=== PATIENT | female | born 1955 | race Caucasian/White ===

== ENCOUNTER → 2017-11-10 11:30 | Outpatient (CLI) | payer OTHER, SELFPAY ==
[2017-11-10 14:22] LABS: Erythrocyte Sedimentation Rate 21 mm/hr (0-30)
[2017-11-10 14:25] LABS: Absolute Lymphocyte Count 1.73 X10^3/ul (0.83-4.51); Absolute Neutrophil Count 5.3 X10^3/uL (2.0-7.7); Basophil# 0.01 X10^3/uL; Basophil% 0.1 % (0-1); Eosinophil# 0.12 X10^3/uL; Eosinophils% 1.6 % (0-5); Hematocrit 39.5 % (37-47); Hemoglobin 12.3 g/dl (12.0-15.0); Lymphocyte # 1.73 X10^3/ul (4.0); Mean Corp Hgb Conc 31.1 g/gl (32-36); Mean Corpuscular Hgb 29.8 pg (27.0-32.0); Mean Corpuscular Volume 95.6 fL (81-99); Mean Platelet Vol. 11.5 fl (6.2-12.0); Monocyte# 0.42 X10^3/uL; Monocyte% 5.6 % (0-10); Neutrophil # 5.25 X10^3/uL (2.7-7.7); Neutrophil % 69.7 % (47-70); Platelet Count 239 K/mm3 (150-450); RBC Distribution Width CV 14.5 % (11.6-14.6); RBC Distribution Width SD 50.1 fl (35.1-43.9); Red Blood Count 4.13 M/mm3 (4.2-5.4); White Blood Count 7.5 K/mm3 (4.4-11.0)
[2017-11-10 14:27] LABS: POSITIVE COUNT NO; POSITIVE DIFFERENTIAL NO; POSITIVE MORPHOLOGY NO
[2017-11-10 14:28] LABS: ALB/GLOB Ratio 0.9 RATIO (0.9-2.4); AST(SGOT) 22 U/L (15-37); Alanine Aminotransfer ALT/SGPT 27 U/L (13-56); Albumin, Serum 3.6 g/dL (3.2-5.0); Alkaline Phosphatase 57 U/L (45-117); Anion Gap 8 (5-15); BUN 14 mg/dL (7-18); BUN/Creat Ratio 16.2 RATIO (10-20); Chloride 105 mmol/L (98-107); Creatinine, Serum 0.86 mg/dL (0.55-1.02); EST Glomerular Filtration Rate 71 mL/min (>60); Est Glom Filt Rate - Afr Amer 86 mL/min (>60); Globulin 3.9 g/dL (2.2-4.2); Glucose 113 mg/dL (74-106); Potassium 4.1 mmol/L (3.5-5.1); Protein, Total 7.5 g/dL (6.4-8.2); Sodium Level 140 mmol/L (136-145)
== END ==
PROVIDERS: Family Provider Family Medicine; PCP Family Medicine; Visit Provider Internal Medicine Rheumatology
DX: M06.4 Inflammatory polyarthropathy (principal); Z79.899 Other long term (current) drug therapy; M25.511 Pain in right shoulder; K52.89 Other specified noninfective gastroenteritis and colitis; M21.40 Flat foot [pes planus] (acquired), unspecified foot; F32.89 Other specified depressive episodes; E03.9 Hypothyroidism, unspecified; F41.9 Anxiety disorder, unspecified; J30.9 Allergic rhinitis, unspecified
CPT/HCPCS: 36415; 80053; 85025; 85652; 86140

== ENCOUNTER → 2018-05-20 11:53 | Outpatient (CLI) | payer OTHER, SELFPAY ==
[2018-05-20 14:20] LABS: Absolute Lymphocyte Count 1.83 X10^3/ul (0.83-4.51); Absolute Neutrophil Count 6.5 X10^3/uL (2.0-7.7); Basophil# 0.03 X10^3/uL; Basophil% 0.3 % (0-1); Eosinophil# 0.11 X10^3/uL; Eosinophils% 1.2 % (0-5); Hematocrit 41.1 % (37-47); Hemoglobin 13.1 g/dl (12.0-15.0); Lymphocyte # 1.83 X10^3/ul (4.0); Lymphocyte % 20.1 % (19-41); Mean Corp Hgb Conc 31.9 g/gl (32-36); Mean Corpuscular Volume 94.1 fL (81-99); Mean Platelet Vol. 11.5 fl (6.2-12.0); Monocyte# 0.64 X10^3/uL; Neutrophil # 6.48 X10^3/uL (2.7-7.7); Neutrophil % 71.3 % (47-70); Platelet Count 230 K/mm3 (150-450); RBC Distribution Width SD 48.4 fl (35.1-43.9); Red Blood Count 4.37 M/mm3 (4.2-5.4); White Blood Count 9.1 K/mm3 (4.4-11.0)
[2018-05-20 14:28] LABS: POSITIVE COUNT NO; POSITIVE DIFFERENTIAL NO; POSITIVE MORPHOLOGY NO
[2018-05-20 14:31] LABS: ALB/GLOB Ratio 0.9 RATIO (0.9-2.4); AST(SGOT) 14 U/L (15-37); Alanine Aminotransfer ALT/SGPT 21 U/L (13-56); Albumin, Serum 3.7 g/dL (3.2-5.0); Alkaline Phosphatase 61 U/L (45-117); BUN 14 mg/dL (7-18); BUN/Creat Ratio 18.1 RATIO (10-20); Calcium,Total 8.9 mg/dL (8.5-10.1); Chloride 104 mmol/L (98-107); Creatinine, Serum 0.77 mg/dL (0.55-1.02); EST Glomerular Filtration Rate 80 mL/min (>60); Est Glom Filt Rate - Afr Amer 97 mL/min (>60); Glucose 110 mg/dL (74-106); Potassium 3.9 mmol/L (3.5-5.1); Protein, Total 7.7 g/dL (6.4-8.2); Sodium Level 139 mmol/L (136-145)
[2018-05-20 14:32] LABS: Anion Gap 8 (5-15)
== END ==
PROVIDERS: Family Provider Family Medicine; PCP Family Medicine; Referring Provider Internal Medicine Rheumatology; Visit Provider Internal Medicine Rheumatology
DX: M06.4 Inflammatory polyarthropathy (principal); Z79.899 Other long term (current) drug therapy; K52.89 Other specified noninfective gastroenteritis and colitis; M21.40 Flat foot [pes planus] (acquired), unspecified foot; F32.89 Other specified depressive episodes; E03.9 Hypothyroidism, unspecified; F41.9 Anxiety disorder, unspecified; J30.9 Allergic rhinitis, unspecified
CPT/HCPCS: 36415; 80053; 85025

== ENCOUNTER → 2018-08-10 12:00 | Outpatient (CLI) | payer OTHER, SELFPAY ==
[2018-08-10 13:13] LABS: Absolute Lymphocyte Count 1.82 X10^3/ul (0.83-4.51); Absolute Neutrophil Count 5.8 X10^3/uL (2.0-7.7); Basophil# 0.03 X10^3/uL; Basophil% 0.3 % (0-1); Eosinophil# 0.08 X10^3/uL; Eosinophils% 0.9 % (0-5); Lymphocyte # 1.82 X10^3/ul (4.0); Lymphocyte % 21.2 % (19-41); Mean Corp Hgb Conc 31.8 g/gl (32-36); Mean Corpuscular Hgb 29.6 pg (27.0-32.0); Mean Platelet Vol. 10.7 fl (6.2-12.0); Monocyte% 9.3 % (0-10); Neutrophil # 5.84 X10^3/uL (2.7-7.7); Neutrophil % 68.1 % (47-70); POSITIVE COUNT NO; POSITIVE DIFFERENTIAL NO; POSITIVE MORPHOLOGY NO; Platelet Count 287 K/mm3 (150-450); RBC Distribution Width CV 14.1 % (11.6-14.6); RBC Distribution Width SD 46.3 fl (35.1-43.9); Red Blood Count 4.73 M/mm3 (4.2-5.4); White Blood Count 8.6 K/mm3 (4.4-11.0)
[2018-08-10 13:31] LABS: AST(SGOT) 20 U/L (15-37); Alanine Aminotransfer ALT/SGPT 35 U/L (13-56); Albumin, Serum 3.9 g/dL (3.2-5.0); Alkaline Phosphatase 60 U/L (45-117); Anion Gap 7 (5-15); BUN 16 mg/dL (7-18); Calcium,Total 9.1 mg/dL (8.5-10.1); Chloride 105 mmol/L (98-107); Creatinine, Serum 0.89 mg/dL (0.55-1.02); EST Glomerular Filtration Rate 68 mL/min (>60); Est Glom Filt Rate - Afr Amer 83 mL/min (>60); Globulin 3.9 g/dL (2.2-4.2); Glucose 97 mg/dL (74-106); Potassium 4.2 mmol/L (3.5-5.1); Protein, Total 7.8 g/dL (6.4-8.2); Sodium Level 140 mmol/L (136-145)
== END ==
PROVIDERS: Family Provider Family Medicine; PCP Family Medicine; Referring Provider Internal Medicine Rheumatology; Visit Provider Internal Medicine Rheumatology
DX: M06.4 Inflammatory polyarthropathy (principal); K52.89 Other specified noninfective gastroenteritis and colitis; M21.40 Flat foot [pes planus] (acquired), unspecified foot; F32.89 Other specified depressive episodes; E03.9 Hypothyroidism, unspecified; F41.9 Anxiety disorder, unspecified; J30.9 Allergic rhinitis, unspecified; Z79.899 Other long term (current) drug therapy
CPT/HCPCS: 36415; 80053; 85025

== ENCOUNTER → 2018-11-15 | Outpatient (CLI) | payer OTHER, SELFPAY ==
[2018-11-15 15:44] LABS: Absolute Lymphocyte Count 1.16 X10^3/ul (0.83-4.51); Absolute Neutrophil Count 6.5 X10^3/uL (2.0-7.7); Basophil# 0.02 X10^3/uL; Basophil% 0.2 % (0-1); Eosinophil# 0.12 X10^3/uL; Eosinophils% 1.4 % (0-5); Hematocrit 39.6 % (37-47); Hemoglobin 12.5 g/dl (12.0-15.0); Lymphocyte # 1.16 X10^3/ul (4.0); Lymphocyte % 13.8 % (19-41); Mean Corp Hgb Conc 31.6 g/gl (32-36); Mean Corpuscular Hgb 29.3 pg (27.0-32.0); Mean Platelet Vol. 11.9 fl (6.2-12.0); Monocyte# 0.62 X10^3/uL; Monocyte% 7.4 % (0-10); Neutrophil # 6.47 X10^3/uL (2.7-7.7); Neutrophil % 76.8 % (47-70); Platelet Count 204 K/mm3 (150-450); RBC Distribution Width SD 46.1 fl (35.1-43.9); Red Blood Count 4.26 M/mm3 (4.2-5.4); White Blood Count 8.4 K/mm3 (4.4-11.0)
[2018-11-15 15:54] LABS: POSITIVE COUNT NO; POSITIVE DIFFERENTIAL NO; POSITIVE MORPHOLOGY NO
[2018-11-15 16:22] LABS: ALB/GLOB Ratio 0.9 RATIO (0.9-2.4); AST(SGOT) 16 U/L (15-37); Alanine Aminotransfer ALT/SGPT 24 U/L (13-56); Albumin, Serum 3.6 g/dL (3.2-5.0); Alkaline Phosphatase 56 U/L (45-117); Anion Gap 8 (5-15); BUN 15 mg/dL (7-18); BUN/Creat Ratio 16.4 RATIO (10-20); Chloride 106 mmol/L (98-107); Creatinine, Serum 0.92 mg/dL (0.55-1.02); EST Glomerular Filtration Rate 66 mL/min (>60); Est Glom Filt Rate - Afr Amer 80 mL/min (>60); Globulin 3.8 g/dL (2.2-4.2); Glucose 118 mg/dL (74-106); Protein, Total 7.4 g/dL (6.4-8.2); Sodium Level 142 mmol/L (136-145)
== END | disposition home or self-care (01) ==
LOC: MTLAB 14:08
PROVIDERS: Family Provider Family Medicine; PCP Family Medicine; Referring Provider Internal Medicine Rheumatology; Visit Provider Internal Medicine Rheumatology
DX: M06.4 Inflammatory polyarthropathy (principal); Z79.899 Other long term (current) drug therapy; K52.89 Other specified noninfective gastroenteritis and colitis; M21.40 Flat foot [pes planus] (acquired), unspecified foot; F32.89 Other specified depressive episodes; E03.9 Hypothyroidism, unspecified; F41.9 Anxiety disorder, unspecified; J30.9 Allergic rhinitis, unspecified
CPT/HCPCS: 36415; 80053; 85025

== ENCOUNTER → 2019-02-10 12:12 | Outpatient (CLI) | payer OTHER, SELFPAY ==
[2019-02-10 14:27] LABS: Absolute Lymphocyte Count 1.58 X10^3/uL (0.83-4.51); Absolute Neutrophil Count 9.3 X10^3/uL (2.0-7.7); Basophil# 0.05 X10^3/uL; Basophil% 0.4 % (0-1); Eosinophil# 0.15 X10^3/uL; Eosinophils% 1.3 % (0-5); Hematocrit 41.3 % (37-47); Hemoglobin 12.7 g/dL (12.0-15.0); Lymphocyte # 1.58 X10^3/ul (4.0); Lymphocyte % 13.5 % (19-41); Mean Corp Hgb Conc 30.8 g/dL (32-36); Mean Corpuscular Hgb 29.7 pg (27.0-32.0); Mean Corpuscular Volume 96.5 fL (81-99); Mean Platelet Vol. 11.7 fl (6.2-12.0); Monocyte# 0.58 X10^3/uL; Monocyte% 4.9 % (0-10); NRBC Flagged by Analyzer 0 % (0-5); Neutrophil # 9.33 X10^3/uL (2.7-7.7); Neutrophil % 79.6 % (47-70); Platelet Count 235 K/mm3 (150-450); RBC Distribution Width CV 14.5 % (11.6-14.6); RBC Distribution Width SD 50.8 fl (35.1-43.9); Red Blood Count 4.28 M/mm3 (4.2-5.4); White Blood Count 11.7 K/mm3 (4.4-11.0)
[2019-02-10 14:40] LABS: ALB/GLOB Ratio 0.9 RATIO (0.9-2.4); AST(SGOT) 18 U/L (15-37); Alanine Aminotransfer ALT/SGPT 27 U/L (13-56); Albumin, Serum 3.7 g/dL (3.2-5.0); Alkaline Phosphatase 60 U/L (45-117); Anion Gap 4 (5-15); BUN 16 mg/dL (7-18); Calcium,Total 9.3 mg/dL (8.5-10.1); Chloride 106 mmol/L (98-107); Creatinine, Serum 0.84 mg/dL (0.55-1.02); EST Glomerular Filtration Rate 73 mL/min (>60); Est Glom Filt Rate - Afr Amer 88 mL/min (>60); Globulin 3.9 g/dL (2.2-4.2); Glucose 95 mg/dL (74-106); Potassium 4.1 mmol/L (3.5-5.1); Protein, Total 7.6 g/dL (6.4-8.2); Sodium Level 139 mmol/L (136-145)
== END ==
PROVIDERS: Family Provider Family Medicine; PCP Family Medicine; Referring Provider Internal Medicine Rheumatology; Visit Provider Internal Medicine Rheumatology
DX: M06.4 Inflammatory polyarthropathy (principal); Z79.899 Other long term (current) drug therapy; K52.89 Other specified noninfective gastroenteritis and colitis; M21.40 Flat foot [pes planus] (acquired), unspecified foot; F32.89 Other specified depressive episodes; E03.9 Hypothyroidism, unspecified; F41.9 Anxiety disorder, unspecified; J30.9 Allergic rhinitis, unspecified
CPT/HCPCS: 36415; 80053; 85025

== ENCOUNTER → 2019-05-31 10:57 | Outpatient (CLI) | payer OTHER, SELFPAY ==
[2019-05-31 12:07] LABS: Absolute Lymphocyte Count 1.63 X10^3/uL (0.83-4.51); Absolute Neutrophil Count 6.7 X10^3/uL (2.0-7.7); Basophil# 0.05 X10^3/uL; Basophil% 0.5 % (0-1); Eosinophil# 0.14 X10^3/uL; Eosinophils% 1.5 % (0-5); Hematocrit 42.3 % (37-47); Lymphocyte # 1.63 X10^3/ul (4.0); Lymphocyte % 17.6 % (19-41); Mean Corp Hgb Conc 30.7 g/dL (32-36); Mean Corpuscular Volume 94.4 fL (81-99); Mean Platelet Vol. 11.7 fl (6.2-12.0); Monocyte# 0.76 X10^3/uL; Monocyte% 8.2 % (0-10); NRBC Flagged by Analyzer 0 % (0-5); Neutrophil # 6.65 X10^3/uL (2.7-7.7); Neutrophil % 71.8 % (47-70); Platelet Count 219 K/mm3 (150-450); RBC Distribution Width CV 13.7 % (11.6-14.6); RBC Distribution Width SD 47.5 fl (35.1-43.9); Red Blood Count 4.48 M/mm3 (4.2-5.4); White Blood Count 9.3 K/mm3 (4.4-11.0)
[2019-05-31 12:56] LABS: ALB/GLOB Ratio 0.9 RATIO (0.9-2.4); AST(SGOT) 20 U/L (15-37); Alanine Aminotransfer ALT/SGPT 22 U/L (13-56); Albumin, Serum 3.6 g/dL (3.2-5.0); Alkaline Phosphatase 56 U/L (45-117); Anion Gap 4 (5-15); BUN 17 mg/dL (7-18); BUN/Creat Ratio 20.8 RATIO (10-20); Calcium,Total 9.7 mg/dL (8.5-10.1); Chloride 107 mmol/L (98-107); Creatinine, Serum 0.82 mg/dL (0.55-1.02); EST Glomerular Filtration Rate 75 mL/min (>60); Est Glom Filt Rate - Afr Amer 91 mL/min (>60); Glucose 95 mg/dL (74-106); Potassium 4.8 mmol/L (3.5-5.1); Protein, Total 7.6 g/dL (6.4-8.2); Sodium Level 139 mmol/L (136-145)
== END ==
PROVIDERS: Family Provider Family Medicine; PCP Family Medicine; Referring Provider Internal Medicine Rheumatology; Visit Provider Internal Medicine Rheumatology
DX: M06.4 Inflammatory polyarthropathy (principal); Z79.899 Other long term (current) drug therapy; K52.89 Other specified noninfective gastroenteritis and colitis; M21.40 Flat foot [pes planus] (acquired), unspecified foot; F32.89 Other specified depressive episodes; E03.9 Hypothyroidism, unspecified
CPT/HCPCS: 36415; 80053; 85025

== ENCOUNTER 2021-11-19 07:06 | Observation (INO) | payer MEDICARE, SELFPAY ==
--- NOTE | 2021-11-07 17:13 | PCM.HP.BLA ---
History and Physical History and Physical [facility] Patient Name: Isidra Hummel : 1955 From:? ANDREAS BISHOP PA-C? DATE OF SURGERY:? 11/19/2021 SCHEDULED PROCEDURE:? left total hip arthroplasty HISTORY OF PRESENT ILLNESS: Preoperative history and physical exam was performed on November 07, 2021.? This is a 66-year-old female who has had ongoing pain for the past couple years.? Patient underwent weight loss with bariatrics surgery.? This was done on November 13, 2020.? She has seen by Dr. Villagomez out of [facility].? Patient initially presented to Dr. Naldo Costello with a previous BMI of 65.? She is now currently down to 44 BMI.? She has reported progressive left hip pain located in the groin and lateral hip.? Patient's pain is intermittent, aching, sharp, stabbing.? She has increased pain with stairs and walking.? She has difficulty with activities of daily living including housework, shopping as well as leisure activities such as gardening, hiking.? She has fallen and tripped/stump due to the pain in the hip.? This has not occurred since using the walker since the fall of 2020.? She does feel unsafe climbing stairs and going for extended walks.? Patient denies previous surgery to the left hip.? She has had prior total knee replacements.? She has been on chronic pain medication involving [place] which is given by her primary care physician Dr. Castellano.? She has also been seen in the past by Dr. Martin her instrument technician helper as she has been diagnosed with inflammatory polyarthropathy.? She also has medical problems including depression, fibromyalgia, thyroid disease, gastroesophageal reflux disease, morbid obesity.? The patient does wish to proceed with a left total hip arthroplasty.? We are obtaining surgical clearance from primary care physician Dr. Castellano.? Also discussing with Dr. Castellano with regards to postoperative pain management as she is currently in a pain contract.? Patient does report last year she broke her clavicle on the right side which she states can be difficult using walkers.? That is why she is using a platform walker. REVIEW OF SYSTEMS: Review Of Systems: Constitutional: Denies change in appetite, fever and weight change. Cardiovasular: Denies chest pain, heart murmur and irregular heartbeat. Respiratory: Denies cough, pneumonia, shortness of breath, tuberculosis and wheezing. Gastrointestinal: Denies constipation, diarrhea, heartburn, nausea, rectal itching, bloody stools and vomiting. Genitourinary: Reports irregular menstrual periods. Denies incontinence. Musculoskeletal: Reports leg swelling, pain, trouble walking and weakness. Skin: Reports Raynaud's, but denies history of shingles and tattoo. Neurological: Reports ambulatory dysfunction but denies dizziness, numbness/tingling and tremor. Psychiatric: Reports anxiety, but denies insomnia and stress. Hematologic/Lymphatic: Denies anemia, bleeding/bruising tendency and past transfusion. Reviewed and updated. PAST MEDICAL HISTORY: Advance Care Plan: No Advance Directives Effective Date: 01/15/2020 Past Medical History: Medical Problems: Arthritis, Depression, Fibromyalgia, Thyroid Disease, gastroesophageal reflux disease, Hypercholesterolemia, Inflammatory Arthropathy Accidents: Fell - (09/2019) LT HIP PAIN Fracture - (03/2021) RT COLLAR BONE Surgical Hx: Gallbladder - (1998) Knee Replacement LT - (2006) Knee Replacement RT - (2006) Bariatric Surgery - (11/13/2020) Anesthesia Complications: Nausea Assistive Devices: Glasses, Cane - as needed, Up Right Walker Reviewed and updated. SOCIAL HISTORY: Social History: Marital: .Occupation: Retired.Work Status: Retired.Hand Dominance: Right-handed. Personal Habits:? Cigarette Use: Never Smoked Cigarettes.Smokeless Tobacco: Never Used Smokeless Tobacco.E-Cigarette Use: Never used.Alcohol: Denies use.Drug Use: Denies Use.Enjoy Exercising: Exercises 1-3 x/month. Reviewed, no changes. VITALS: Ht: 65 Wt: 270lb Wt k.472 BMI: 44.9 BP: 128/88 Pulse: 73 Resp: 14 T: 97.9 T: 36.6C Pain Level: 7 O2SatR: 98 ALLERGIES: Sulfa Humira Compazine? MEDICATIONS: Simvastatin 20 mg 1 po qd, Duloxetine HCL 60 mg 1 po qd, Prednisone 5 mg take 1 tablet by mouth once daily for 3-5 DAYS FOR A FLARE, Megestrol Acetate 20 mg 1 po qd, Hydrocodone Bitartrate/Acetaminophen 5-325 mg, Levothyroxine Sodium 75 mcg 1 by mouth every day, Fibercon 625 mg 1 po qd, Biotin? 1 po qd, Omeprazole 20 mg 1 by mouth every day, Metoprolol Tartrate 50 mg 1 by mouth twice a day, D3 50 mcg (2000 Ut) 1po qday, Methyl B-12 1000 mcg 1po qday, Flintstones W/Iron 18 mg 1po qday, Hydroxychloroquine Sulfate 200 mg, Methotrexate 2.5 mg, Leucovorin Calcium 5 mg 7po weekly, Folic Acid 1 mg 1 by mouth every day, Calcium 600 mg, Ferosul 325 (65 Fe) MG 1 by mouth every day PRE-OP EXAM:? General appearance:NORMAL? ? ? Other: Eyes: Conjunctivae and lids: NORMAL? Pupils: ERR Ears, Nose, Mouth, and Throat: NORMAL? Other: Inspection of lips, teeth and gums: NORMAL? ?Other: Neck: Examination of neck: no masses noted. Respiratory: Assessment of respiratory effort: NORMAL? ?Other: ?Auscultation of lungs: clear to auscultation no wheezes, rhonchi or rales. Cardiovascular:? Auscultation of heart: regular rate and rhythm, no murmurs, gallops or rubs. PHYSICAL EXAMINATION: Patient presents today using a 4 wheeled walker with platform.? This is a morbidly obese 66-year-old who walks with an antalgic gait.? She has hip flexion to approximately 40, internal rotation to neutral, external rotation 30.? Sensation intact to light touch. IMAGING STUDIES: Previous x-rays of the left hip Reveal joint space narrowing, subchondral sclerosis, osteophyte formation consistent with severe stage IV erosive osteoarthritis with associated femoral head and acetabular cyst.? The femoral head cyst that show evidence of femoral head collapse. IMPRESSION: 1.? 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 Fibromyalgia 3.? Morbid obesity: Patient is undergone bariatric surgery and went from BMI 65 to 44 4.? Depression 5.? Thyroid disease 6.? Gastroesophageal reflux disease 7.? Hypercholesterolemia 8.? Inflammatory polyarthropathy PLAN: Dr. Naldo Costello did discuss and review with the patient all treatment options including surgical versus nonsurgical options.? Patient does wish to proceed with the above-stated procedure.? Potential risks, benefits, and complications of the procedure were discussed in detail including but not limited to , infection, nerve and blood vessel damage, persistent pain, numbness, tingling, paresthesias, blood clot, pulmonary embolism, and requirement for possible further surgery.? The patient expressed full understanding and has no further questions for the doctor.? Patient does agree to proceed with the above-stated procedure and has signed the surgery consent form. We discussed the current risks associated with COVID 19.? This does include the risk of exposure while in the hospital.? Patient was reassured local hospitals have low infection rates and are taking all necessary precautions to avoid exposure to patients.? In addition, we discussed strategies that can be used to help limit exposure including those that limit the patient's time in the hospital.? Also using strategies to limit the patient's need for continued inpatient services after being discharged from the hospital.? Patient was notified that we will need to comply with any screening or testing the hospital wishes to perform or that surgery may be delayed for any positive results. This dictation was created using voice recognition software. Phonetic and/or grammatical errors may exist. ___? I have re-examined the patient.? There are no clinical changes since date of exam. ___? See progress notes for changes. ___? Dictated on admission Date: ? ? ?Time: Signature:
[2021-11-19] VITALS (15 sets, daily range): BP systolic 115–160; BP diastolic 60–115; PULSE 81–91; RESP 16–18; TEMP 36.1–37.3; O2SAT 97–100; BMI 46.5
--- NOTE | 2021-11-19 | HIP_PTH ---
PATIENT: BLANCA STALLWORTH LOC: MS3 U#:[id number] AGE/SX: 66/F ROOM: [facility] [place] RE11/19/[address]: Dr. Naldo Costello MD : 1955 BED: 1 DIS: 11/20/2021 SPEC #: [id number] RECD: 11/19/21 13:16 STATUS: BUD DAI #: [id number] NIRAV: 11/19/21 00:[address]: Naldo Costello DEPT: SURGICAL PATHOLOGY RECD BY: Rahul Castellano ENTERED: 11/19/21 13:16 SP TYPE: TOTAL HIP OTHR DR: Dr. 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 Fragments of fibroadipose tissue and fibroconnective tissue. SJ:jay jay 11/24/2021 MICROSCOPIC DESCRIPTION Slides are reviewed. GROSS DESCRIPTION Received is one container labeled with the patient's name and designated left femoral head. The specimen consists of a campbell deformed measuring 5.5 x 4.5 x 4.5 cm. The articular surface displays prominent osteophyte formation, eburnation and bone erosion. Also present in the specimen container are multiple irregular fragments of soft tissue, bone reamings and bone fragments measuring in aggregate 9 x 8 x 1.5 cm. Manager Reliability sections are submitted in two cassettes as follows: 1 - soft tissue, 2 - bone after decalcification. / AM:jay jay 11/19/2021 TC:5 [facility]: [id number], [id number]
--- NOTE | 2021-11-19 07:03 | PCM.OPRPT ---
Report of Operation Date of Procedure: 11/19/21 Pre-Operative Diagnosis: Left hip primary osteoarthritis Left hip idiopathic osteonecrosis Post-Operative Diagnosis: Left hip primary osteoarthritis Left hip idiopathic osteonecrosis Surgery/Procedure Performed:: Left minimally invasive direct anterior hip replacement Description of Surgical Findings:: Stable hip with equal leg lengths Surgeon: Naldo Costello solder technician: Asad Mayer Type of Anesthesia: Spinal Anesthesiologist: Vince Means Special Medications: 3 g Ancef, 1 g TXA at incision, 1 g TXA closure, 10 mg Decadron, joint cocktail (5 mg Duramorph, 30 mL of 0.5% Ropivicaine, 1000 units of epinephrine, 30 mg of Toradol) Specimen's removed: Bony cuts Estimated Blood Loss (mL): 500 Fluids Replaced: 1200 mL crystalloid Description of Procedure: Components used: 1. Accolade 2 [employer] femoral stem size 5 127? 2. Myriam trident 2 acetabular shell size 52 mm 3. [facility] [employer] X3 polyethylene 42E MDM liner 4. Myriam Biolox delta 28mm, 0mm femoral head 5. Myriam MDM cobalt-chromium liner alpha code E Brief history operative indications: 66 yo F who failed conservative measures for their hip osteoarthritis. X-rays were consistent with osteoarthritis including joint space narrowing, osteophyte formation and subchondral cysts. Total hip replacement was discussed with the patient with risks and benefits including but not limited to blood loss, DVTs, PEs, neurovascular damage, dislocation, general risks of anesthesia including loss of life. Patient demonstrated an understanding medical clearance is obtained the patient was consented for surgery. Procedure: On the date of procedure the patient's L hip was marked in the preoperative area. Patient was then taken back to the operating room where anesthesia assumed control of the C-spine and airway and administered anesthetic. Patient was transferred to the operating table and placed in the supine position. The hips were placed at the break of the bed and a sacral bump was placed. Based on patient's body habitus positioning took additional time and assistance. L The lower extremity was then prepped out in a sterile fashion using chlorhexidine while the surgeon scrubbed. The PA was vital in the positioning of the patient. Upon reentering the room the left lower extremity was draped in the standard orthopedic fashion and the incision was marked. A timeout was called and everyone agreed upon the side, the site, the procedure be performed, antibody given, and patient's identity. At this time incision was made through skin, subcutaneous tissue, and fat down to fascia. The fascia was then incised and the TFL was retracted laterally. A retractor was placed on the lateral border of the femoral neck. Attention was directed to the inferior portion of the approach and all crossing vessels were identified and appropriately coagulated. A retractor was then placed on the medial portion of the femoral neck. The anterior capsule was then cleared of all soft tissue and then H shaped capsulotomy was made. The retractors were then placed inside the capsule. The femoral neck was identified and a cleanup cut was made. At this time a power corkscrew was used to remove the femoral head. Attention was then turned toward the acetabulum where the soft tissues were appropriately retracted and the acetabulum was sequentially reamed to 52 mm. A 52 mm cup was then selected and impacted into place. Acetabular liner was impacted into place and locking mechanism was verified. During this portion of the case due to patient's body habitus we had to reposition retractors multiple times in order to have appropriate visualization. In addition due to patient's body habitus we used additional fluoroscopy to verify implant position. The position of the acetabular cup was then verified under live fluoroscopy. Attention was then turned to the femur. Soft tissue releases on the medial and lateral femoral neck were appropriately done, the leg was externally rotated and lateralized. A Perkins retractor was placed medially and proximally to the greater trochanter this allowed appropriate visualization and exposure of the femoral canal. [place] was then used to remove excess lateral bone. A canal finder and entry broach were used to open the proximal canal. Once we verified we were down the femoral canal we subsequently broached up to a size 5 femur. The appropriate neck was placed in the previously selected head was trialed with a 0 mm neck. Traction was pulled and the hip was reduced with internal rotation. Once it was appropriately reduced and stability was checked. There was minimal shuck, equal leg lengths and appropriate stability with hyperextension and external rotation as well as with 90? flexion and internal rotation. Fluoroscopy was then also used to verify the position of the components and leg lengths using the contralateral side for comparison. The trial components were then dislocated the proximal femur was again exposed and the components were removed from the wound. The final components were verified and opened. The wound was copiously irrigated out with normal saline. The acetabulum was checked for any residual debris. The final components were placed and impacted. Traction and internal rotation were again used to reduce the hip. After adequate reduction the hip remained stable with appropriate leg lengths. The final components were once again checked with live fluoroscopy and were found to be satisfactory. The wound was then copiously irrigated with normal saline once more, and hemostasis was obtained. Closure was then done using #1 Vicryl runner to close the fascia. A 2-0 vicryl interuppted sutures were used to close the subcutaneous skin. A 3-0 Monocryl and Steri-Strips were used for final skin closure. A Silverlon dressing was placed. Patient was awakened by anesthesia and transferred to the [place]. Patient was then transferred to the PACU for recovery. During the course of the procedure the physician access clerk (PE) played a vital role. Their intimate knowledge of my steps in the procedure aided in safe and expedient completion of the procedure. The PE played a vital rolls in positioning particularly in obtaining the appropriate positioning of the sacral bump. The PE was also vital in the retraction of soft tissues during the exposure and especially the femoral work as this is a vital part of the procedure to prevent complications and fractures. The PE was also vital and protecting soft tissues during times of bony cuts and reaming. He also played a vital role in closure with my direct supervision. The PE was also important during reduction and dislocation of the joint and trials intraoperatively. Postoperative plan: Patient will get 24 hours postop antibiotics. Patient will get in-house physical therapy and will be weight-bear as tolerated. Patient will follow up in office in 2 weeks for a wound check and x-rays. Xarelto 10 mg daily for DVT prophylaxis due to current treatment with hormone replacement therapy. Patient will be placed on doxycycline for 2 weeks postoperatively due to high risk nature. BMI greater than 40. Modifier 22: Patient's BMI on date of surgery was 46.6. She had undergone significant weight loss. Based on her increased BMI and body habitus as noted above additional time was taken for approach as well as acetabular reaming and visualization of the femur. This included additional time to position the patient appropriately as well as time to replace tractors. Additionally deeper retractors needed to be used. Based on this normal hip replacement takes roughly 50 minutes today's took 80 minutes for safe completion. Complications No intraoperative complications Admit VTE Documentation VTE Present on Admission: No VTE Mechan Device Prophylaxis: SCD's and Thigh High JEFF Hose VTE Pharm Prophylaxis ordered?: Yes
[2021-11-19] MEDS: Lactated Ringers 1,000 ML 999 ML IV ×2 (07:10→12:50)
[2021-11-19] MEDS: Acetaminophen 325 MG Tablet PO (07:21)
[2021-11-19] MEDS: Gabapentin 600 MG Tablet PO (07:21)
[2021-11-19 07:25] LABS: Bedside Glucose 69 mg/dL (74-106)
--- NOTE | 2021-11-19 07:26 | SUR.PREOP ---
Patient advised nurses that she took 2 NORCO tabs prior to surgery arrival today 11/19/[address] Costello paged, and spoke to face to face to make aware. Dr. Costello advised to administer 325mg PO Tylenol instead of the 1000mg. RN read order back to physician and he agreed. This RN canceled 1000mg ERAS Tylenol order and placed order for 325mg Tylenol PO.
--- NOTE | 2021-11-19 07:45 | RAD_ITS ---
STUDY: X-RAY - PELVIS AND LEFT HIP REASON FOR EXAM: Female, 66 years old. PAIN TECHNIQUE: 1 views of the pelvis and hip. COMPARISON: None. FINDINGS: Intraoperative imaging provided for left anterior total hip replacement. RAD/Hip 1 view with Pelvis IMPRESSION: Intraoperative imaging provided for left anterior total hip replacement. Electronically Signed: Yannick Morrissey MD at 15:46 EDT ,
[2021-11-19] MEDS: Cefazolin 2 GM in 0.9% Normal Saline 100 ML IV (08:39)
[2021-11-19] MEDS: dexAMETHasone 10 MG/ML Vial IV (09:00)
[2021-11-19] MEDS: TXA 1000mg in NS100 100ml (IVPB at Incision) 660 MG IV (09:00)
[2021-11-19] MEDS: TXA 1000mg in NS100 100ml (IVPB at Closure) 660 MG IV (10:45)
--- NOTE | 2021-11-19 12:10 | RAD_ITS ---
STUDY: X-RAY - PELVIS AND LEFT HIP REASON FOR EXAM: Female, 66 years old. Post Op -- AP both hips on single freida/lateral of op hip PACU TECHNIQUE: 2 views of the pelvis and hip. COMPARISON: None. FINDINGS: The patient is status post left hip replacement. There is good alignment. Postoperative soft tissue changes. RAD/Hip Min 2 Views (Portable) IMPRESSION: Status post left hip replacement. There is good alignment. Soft tissue changes. Electronically Signed: Yannick Morrissey MD at 12:46 EDT ,
[2021-11-19] MEDS: Cefazolin 1 GM/50 ML BAG IV (16:45)
[2021-11-19] MEDS: Ensure Surgery 237 ML LIQUID PO (16:45)
[2021-11-19] MEDS: Acetaminophen 500 MG Tablet 1000 MG PO ×2 (16:46→21:11)
--- NOTE | 2021-11-19 17:47 | PCM.PN.HOSP ---
Subjective Subjective Doing well, pain is fairly well controlled. She is status post a left total hip replacement secondary to arthritis. She does have a history of chronic rheumatologic arthritis that she is on Plaquenil as well as methotrexate and leucovorin 4. Objective Data Objective Data Vital Signs: Vital Signs Temp Pulse Resp BP Pulse Ox O2 Del Method O2 Flow Rate 98.1 F 84 16 157/76 H 99 Room Air 4 11/19/21 16:43 11/19/21 16:43 11/19/21 16:43 11/19/21 16:43 11/19/21 16:43 11/19/21 16:43 11/19/21 14:00 Oxygen Flow Rate (L/min) 4 Oxygen Delivery Method Room Air Weight: 279 lb 15.793 oz Body Mass Index (BMI) 46.5 Intake & Output: Intake and Output for Last 24 Hours 11/18/21 11/19/21 11/20/21 03:59 03:59 03:59 Intake Total 2834 / 2834 Output Total 800 / 800 Balance 2033 / 2033 Lab / Micro Data Result Diagrams: 11/20/21 05:50 11/20/21 05:50 Labs: Laboratory Results - last 24 hr 11/19/21 07:11: POC Glucose 69 L Radiography Diagnostic Testing: Radiology Impression Hip/Pelvis X-Ray 11/19/21 07:45 IMPRESSION: Intraoperative imaging provided for left anterior total hip replacement. Electronically Signed: Yannick Morrissey MD at 15:46 EDT , Hip X-Ray 11/19/21 12:10 IMPRESSION: Status post left hip replacement. There is good alignment. Soft tissue changes. Electronically Signed: Yannick Morrissey MD at 12:46 EDT , Physical Exam Const alert, oriented x3 and no apparent distress General Appearance: cooperative HEENT normocephalic and moist oral mucous membranes Eyes PERRL, EOMs intact bilaterally and conjunctivae normal Neck supple and no JVD Resp normal respiratory effort, no retractions, no use of accessory muscles and clear to auscultation bilaterally Auscultation: Negative for crackles, rales, rhonchi or wheezes Cardio regular rate, regular rhythm, S1 normal heart sound, S2 normal heart sound and no murmurs GI soft to palpation, non-tender and non-distended; Negative for hepatosplenomegaly Extremity no clubbing, cyanosis or edema Skin Skin Narrative: Incision on the left hip is dressed and intact Neuro no focal motor deficits and no sensory deficits noted Psych affect normal Appearance: appropriate Assessment & Plan Assessment/Plan (1) Status post total hip replacement, left: PLAN: Plan 1. Status post left total hip replacement on 11/19/2021 ? Consulted for medical management ? Pain management per primary ? PT/OT ? DVT prophylaxis per primary 2. Rheumatologic arthritis ? Continue with her Plaquenil, leucovorin, methotrexate ? She does take prednisone as needed for flares and I discussed with her that prednisone can inhibit wound healing should only take it on discharge if she is having significant difficulty with walking or other functional activities 3. HTN/HLD ? Stable ? Continue with her home metoprolol and simvastatin for what 4. Hypothyroidism ? Stable ? Continue with Synthroid 5. GERD ? Stable ? Continue with PPI 6. Anxiety/depression ? Stable ? Continue with Cymbalta DVT: Jacey Charges/Coding Visit Charges OBSV E&M: 16881 Subsequent observation care L2
[2021-11-19] MEDS: Metoprolol Tartrate 50 MG Tablet PO (20:41)
[2021-11-19] MEDS: Senna/Docusate Sodium 1 Tablet 2 TABLET PO (20:41)
[2021-11-19] MEDS: Atorvastatin Calcium 10 MG Tablet PO (20:42)
[2021-11-19] MEDS: Hydroxychloroquine 200 MG Tablet PO (20:42)
[2021-11-19] MEDS: oxyCODONE 5 MG Tablet PO (20:43)
[2021-11-19] MEDS: DULoxetine Hcl 60 MG Capsule PO (20:43)
[2021-11-19] MEDS: Megestrol 40 MG Tablet 20 MG PO (21:10)
[2021-11-20] MEDS: Cefazolin 1 GM/50 ML BAG IV (00:18)
[2021-11-20 02:06] VITALS: BP 128/62; PULSE 84; RESP 16; TEMP 36.9; O2SAT 98
[2021-11-20] MEDS: Levothyroxine 75 MCG Tablet PO (05:18)
[2021-11-20] MEDS: Rivaroxaban 10 MG Tablet PO (05:18)
[2021-11-20] MEDS: oxyCODONE 5 MG Tablet PO ×2 (05:19→09:45)
[2021-11-20] MEDS: Acetaminophen 500 MG Tablet 1000 MG PO ×2 (05:19→14:19)
[2021-11-20 05:27] VITALS: BP 120/56; PULSE 86; RESP 18; TEMP 37; O2SAT 96
[2021-11-20 06:24] LABS: Hematocrit 30.1 % (37-47); Hemoglobin 9.8 g/dL (12.0-15.0); Mean Corp Hgb Conc 32.6 g/dL (32-36); Mean Corpuscular Hgb 31.3 pg (27.0-32.0); Mean Corpuscular Volume 96.2 fL (81-99); Mean Platelet Vol. 11.6 fl (6.2-12.0); Platelet Count 150 K/mm3 (150-450); RBC Distribution Width SD 45.4 fl (35.1-43.9); Red Blood Count 3.13 M/mm3 (4.2-5.4); White Blood Count 13.7 K/mm3 (4.4-11.0)
[2021-11-20 06:57] LABS: Anion Gap 5 (5-15); BUN 18 mg/dL (7-18); BUN/Creat Ratio 26.7 RATIO (10-20); Calcium,Total 8.7 mg/dL (8.5-10.1); Chloride 107 mmol/L (98-107); Creatinine, Serum 0.68 mg/dL (0.55-1.02); EST Glomerular Filtration Rate 93 mL/min (>60); Est Glom Filt Rate - Afr Amer 113 mL/min (>60); Estimated Creatinine Clearance 74.22 ml/min; Glucose 151 mg/dL (74-106); Potassium 4.2 mmol/L (3.5-5.1); Sodium Level 138 mmol/L (136-145)
[2021-11-20] MEDS: Pantoprazole Sodium 20 MG Tablet PO (09:28)
[2021-11-20] MEDS: Cholecalciferol (VIT D3) 25 MCG TABLET (1,000 UNITS) 50 MCG PO (09:29)
[2021-11-20] MEDS: Ferrous Sulfate 325 MG Tablet PO (09:29)
[2021-11-20] MEDS: Famotidine 20 MG Tablet PO (09:30)
[2021-11-20] MEDS: Vitamin B Comp W-C Capsule 1 CAP PO (09:30)
[2021-11-20] MEDS: Multivitamins,Ther W-Minerals Tablet 1 TABLET PO (09:30)
[2021-11-20] MEDS: Calcium (Elemental) 500 MG Tablet PO (09:30)
[2021-11-20] MEDS: Ensure Surgery 237 ML LIQUID PO ×2 (09:35→12:31)
[2021-11-20] MEDS: Senna/Docusate Sodium 1 Tablet 2 TABLET PO (09:44)
[2021-11-20] MEDS: DULoxetine Hcl 60 MG Capsule PO (09:44)
[2021-11-20 09:47] VITALS: PULSE 86
[2021-11-20] MEDS: Metoprolol Tartrate 50 MG Tablet PO (09:47)
[2021-11-20 09:51] VITALS: O2SAT 96
[2021-11-20 10:02] VITALS: BP 146/87; PULSE 86; RESP 16; TEMP 36.8; O2SAT 99
--- NOTE | 2021-11-20 11:08 | PN.ORTHO_ITS ---
Subjective Subjective The patient was sitting in bedside chair upon examination. Patient denies any chest pain, shortness of breath, dizziness, lightheadedness, nausea or vomiting, or calf pain. Pain is controlled on medications. No adverse overnight events. Patient has had therapy and states she did well. Her pain is controlled on medications. Patient does complain of some soreness in the anterior left thigh. She states she feels she has more motion already postoperatively than she had prior to surgery. Patient is currently being treated with an incisional wound VAC for 7 days postoperatively. There is no drainage in the tubing or canister. Patient's plan is to go home when ready. Objective Data Objective Data Vital Signs: Vital Signs Temp Pulse Resp BP Pulse Ox O2 Del Method O2 Flow Rate 98.2 F 86 16 146/87 H 99 Room Air 4 11/20/21 10:02 11/20/21 10:02 11/20/21 10:02 11/20/21 10:02 11/20/21 10:02 11/20/21 10:02 11/19/21 14:00 Oxygen Flow Rate (L/min) 4 Oxygen Delivery Method Room Air Weight: 127 kg Body Mass Index (BMI) 46.5 Intake & Output: Intake and Output for Last 24 Hours 11/18/21 11/19/21 11/20/21 23:59 23:59 23:59 Intake Total 2834 / 2834 50 / 50 Output Total 800 / 800 1000 / 1000 Balance 2033 / 2033 -950 / -950 Lab / Micro Data Result Diagrams: 11/20/21 05:50 11/20/21 05:50 Labs: Laboratory Results - last 24 hr 11/20/21 05:50: WBC 13.7 H, RBC 3.13 L, Hgb 9.8 L, Hct 30.1 L, MCV 96.2, MCH 31.3, MCHC 32.6, RDW Std Deviation 45.4 H, RDW Coeff of Kathy 13.0, Plt Count 150, MPV 11.6 11/20/21 05:50: Sodium 138, Potassium 4.2, Chloride 107, Carbon Dioxide 26.0, Anion Gap 5, BUN 18, Creatinine 0.68, Estim Creat Clear Calc 74.22, Est GFR (MDRD) Af Amer 113, Est GFR (MDRD) Non-Af 93, BUN/Creatinine Ratio 26.7 H, Glucose 151 H, Calcium 8.7 Radiography Diagnostic Testing: Radiology Impression Hip/Pelvis X-Ray 11/19/21 07:45 IMPRESSION: Intraoperative imaging provided for left anterior total hip replacement. Electronically Signed: Yannick Morrissey MD at 15:46 EDT , Hip X-Ray 11/19/21 12:10 IMPRESSION: Status post left hip replacement. There is good alignment. Soft tissue changes. Electronically Signed: Yannick Morrissey MD at 12:46 EDT , Physical Exam Narrative Vital signs stable and afebrile. Left thigh is soft and supple Patient was not able to wear JEFF hose and currently has Kenn wraps on bilateral lower extremities with SCDs. Patient is able to plantarflex and dorsiflex actively. Sensation is intact to light touch to saphenous, sural, superficial and deep peroneal, and tibial distribution. Dressing is clean dry and intact. Negative Homans bilaterally, negative signs and symptoms of DVT. Const alert, oriented x3 and no apparent distress Nutritional Appearance: morbidly obese Assessment & Plan Assessment/Plan (1) Status post total hip replacement, left: PLAN: 1. S/P direct anterior left total hip arthroplasty POD #1 2. Continue Pain Medications: Tylenol and oxycodone 3. DVT Prophylaxis: Xarelto for 2 weeks postoperatively as patient is currently treated with hormone treatment. Plan will be for Xarelto for 2 weeks postoperatively followed by aspirin 81 mg twice daily for an additional 2 weeks. Patient denies any history of DVT or pulmonary embolism 4. PT/OT: Weightbearing as tolerated with walker 5. H & H: 9.8/30.1, asymptomatic. Postoperative anemia secondary to acute blood loss from surgery without any intra operative complications. Patient is already treated by her primary care physician for some underlying anemia. She currently takes ferrous sulfate and folic acid. Preoperatively her hemoglobin was 11.9. Recommend follow-up with primary care physician in 7 to 10 days with repeat lab work. Patient voiced understanding agreement. 6. Continue with antibiotic doxycycline for 2 weeks postoperatively secondary to morbid obesity and increased risk of infection. Discussed with the patient side effects which include sensitivity to sunlight. She will take appropriate precautions. Also recommended probiotic for 2 weeks postoperatively while taking the antibiotic. Patient voiced understanding agreement. 7. Continue postoperative medical management per medicine: Patient is already treated for underlying anemia and will continue with her medications. I did recommend follow-up with her PCP with repeat lab work in 7 to 10 days. Case management will help assist patient without follow-up. 8. Encouraged Incentive Spirometry 9. Disposition: Plan will be for probable discharge home today as long as diane crawford tolerates therapy, pain is well controlled, and medically cleared. Case was discussed with the hospitalist and he is okay for discharge. Patient will continue with the incisional wound VAC for 7 days postoperatively. She will remove this herself. I explained to the patient that after removal of the incisional wound VAC she is to place 4 x 4 dressing or washcloth to protect the incision from any breakdown until well-healed 4 weeks postoperatively. She voiced understanding and agreement. Recommend follow-up with the primary care physician for follow with her lab work and anemia. She will continue with the ferrous sulfate and folic acid. She is currently asymptomatic. Patient would like her prescriptions E scribed to [facility]. She will be on the Xarelto for 2 weeks postoperatively due to hormone therapy treatment. Patient will follow-up per postop instructions. She will contact her office upon discharge with any concerns or questions. Patient also has outpatient physical therapy established. I have reviewed the [place] Automated Rx Reporting System (OARRS) report for this patient for refill pattern and other prescriber involvement as part of the [facility] for the provision of acute and chronic controlled medications. The report was requested and reviewed on the date of this entry and was considered in the prescribing process. This dictation was created using voice recognition software. Phonetic and/or grammatical errors may exist.
--- NOTE | 2021-11-20 11:16 | DCINST_ITS ---
Discharge Instructions Diet Discharge Diet: No restrictions Activity Discharge Activity: May Not Drive (While taking narcotics and must be able to walk 100 feet without the use of cane or walker) May shower in (days): 1 (only if incision is dry and without drainage. Do NOT soak/submerge in tub/pool/pedraza/stream/hot tub.)) Ice area for (Minutes): 20 (Every 1-2 hours while awake[address] place barrier between ice and skin.) Weight Bearing Status: Weight bearing as tolerated Keep extremity elevated above heart level: Operative Extremity Additional Activity Instructions:: Follow [facility] Post-op Instructions. Once postoperative dressing has been removed only use gentle soap and water over the incision. Do not use any ointments, Neosporin, salves, alcohol pads over the incision for 6 weeks postoperatively. Do not submerge underwater for 6 weeks postoperatively. Wear elastic stockings for 2 weeks. Do NOT use alcohol with narcotic pain medication. Do NOT make important decisions while taking narcotic medication. If you have problems with taking your medication (rash, itching, nausea, etc.) call the office at once. Dressing / Incision Call your doctor if your incision/area has: Continuous Slow Oozing, Sudden Increased Bleeding, Increased Pain/ Swelling, Increased Redness and Foul Smelling Discharge Call your doctor if you observe: Fever of 101 or Higher, Shortness of breath, Chest pain, Calf discomfort and Uncontrolled pain Additional Dressing/Incision Instructions:: Follow [facility] Post-op Instructions. Once postoperative dressing has been removed, only use gentle soap and water over the incision. Do not use any ointments, Neosporin, salves, alcohol pads over the incision for 6 weeks postoperatively. Do not submerge underwater for 6 weeks postoperatively. Continue with JEFF hose/elastic stockings for 2 weeks postoperatively. May remove at nighttime but needs to be placed back on the leg during the day. Do NOT use alcohol with narcotic pain medication. Do NOT make important decisions while taking narcotic medication. If you have problems with taking your medication (rash, itching, nausea, etc.) call the office at once. Continue with incisional wound VAC for 7 days postoperatively. After removal of the wound VAC please utilize a washcloth or 4 x 4 dressing to protect the incision from the skin fold. Please do this for 4 weeks postoperatively until the incision is well-healed Follow Up Care Test Results: Test results from this visit will be discussed in further detail at your follow- up appointment, if applicable. Discharge Plan Admission Admit Date/Time: 11/19/21 07:06 Attending Provider: Naldo Costello Primary Care Provider: Naldo Castellano Consulting Providers: Meri Kruger ; Tita De Guzman ; Reynaldo Moran ; Ede Crews Discharge Orders/Prescriptions Prescriptions: New acetaminophen 500 mg Tablet 1,000 mg PO Q8 Qty: 90 0RF Rx Instructions: Do not take more than 3000 mg Tylenol in a 24-hour period. doxycycline monohydrate 100 mg Capsule 100 mg PO BID 14 Days Qty: 28 0RF Rx Instructions: Take for 2 weeks postoperatively oxycodone 5 mg Tablet 5 - 10 mg PO Q4H PRN PRN (Reason: Pain Score 4-10) 5 Days Qty: 60 0RF Xarelto 10 mg Tablet 10 mg PO DAILY@0600 Qty: 12 0RF sennosides-docusate sodium [Stool Softener-Stimulant Laxat] 8.6-50 mg Tablet 2 tab PO BID Qty: 20 0RF Rx Instructions: Take until first bowel movement, then as needed Continued calcium 600 mg Capsule 1,200 mg PO DAILY leucovorin calcium 25 mg Tablet 25 mg PO TH prednisone 5 mg Tablet 5 mg PO PRN PRN (Reason: FLARE) levothyroxine 75 mcg Tablet 75 mcg PO DAILY methotrexate sodium 2.5 mg Tablet 20 mg PO TU simvastatin 20 mg Tablet 20 mg PO QHS ferrous sulfate 325 mg (65 mg iron) Tablet 325 mg PO DAILY calcium polycarbophil [FiberCon] 625 mg Tablet 625 mg PO BID metoprolol tartrate 50 mg Tablet 50 mg PO BID folic acid 1 mg Tablet 2 mg PO LUNCH hydroxychloroquine [Plaquenil] 200 mg Tablet 200 mg PO BID megestrol 20 mg Tablet 20 mg PO QHS multivitamin with iron-mineral Tablet,Chewable 1 tab PO DAILY duloxetine 60 mg Capsule,Delayed Release(Dr/Ec) 60 mg PO BID omeprazole 20 mg Tablet,Delayed Release (Dr/Ec) 20 mg PO DAILY cholecalciferol (vitamin D3) [Vitamin D3] 50 mcg (2,000 unit) Capsule 50 mcg PO DAILY vitamin R91-uhxot acid 500-400 mcg Tablet 1 tab PO DAILY Rx Instructions: administer with a meal biotin 5,000 mcg Tablet, Sublingual 5,000 mcg SUBLINGUAL LUNCH Discontinued hydrocodone-acetaminophen 5-325 mg Tablet 2 tab PO DAILY hydrocodone-acetaminophen 5-325 mg Tablet 1 tab PO LUNCH hydrocodone-acetaminophen 5-325 mg Tablet 1 tab PO QHS Referrals / Follow Up: Physical,Therapy [Other] - 11/25/21 Naldo Castellano MD [Primary Care Provider] - (follow up in 7 days ) Naldo Costello MD [STAFF PHYSICIAN] - 12/01/21 1:45 pm Disposition Disposition (needs filled in before D/C Order can be placed): Home, Self Care
--- NOTE | 2021-11-20 11:50 | CASEMGMT ---
RN CM ENTER[employer]ISE [employer]TEGRATION DEVELOPER CM to room to meet with patient for initial transition planning/care coordination assessment. RN TAYA introduced self and role at [facility].? Pt voices understanding and consents to assessment at this time.? Pt resting in bed in no distress at this time.? Pt is A/O at this time and answers all questions appropriately.?? Care providers, pharmacy, and demographics verified/updated at this time. PCP: Dr Castellano Specialists: Dr Costello-ortho, Dr Peres-wax specialist [facility] Prescription Benefit:? Yes Living Will/HPOA:? Pt does not currently have LW/HCPOA and declines info at this time.? Pt made aware that she can contact [facility] as an out-pt and make appt in the future if she decides she would like to talk with someone about this or would like to utilize [facility] social work for advanced directive completion.???Pt has Professor Of Management Rac card with information and contact number. LNOK: , [place] Living Arrangements: Lives w/ in 2-story home w/ramp entrance. [employer]. Indep w/ADL's and does cooking and some laundry and manages her own meds and appts. Family gets her groceries and either family or friend does cleaning. Transportation: Pt states drives self and states no transportation concerns at this time.? also drives. DME: ?States has the following DME:? RTS, lift chair, walker, W/C ?Pt states no need for further DME at this time.? HHC/SNF: No hx of either. Pt states she has an appt for OP therapy @ [facility] in [place] to begin 11/25 @ 5 PM. Pt wishes to return home and states has no concerns with going home at time of discharge.? Pt voices concerns/needs at this time.? Advised pt to ask for CM if any questions/concerns/needs arise.? Voices understanding. [facility] form explained re: Observation status for treatment of left total hip arthroplasty.? Explained hospitalization will be paid per her? insurance policy for Outpatient billing?and condition will continue to be evaluated for Inpt necessity. Also let pt know that [facility] sends paper in the billing packet with their phone number if questions arise. Discussed Pharmacy section of [facility] form and self administered medication guideline.? Pt verbalizes understanding and does not have further questions. ?Form signed, copy made and placed in chart, and original given to pt. PLAN: ?Home w/OP therapy. Oscar POLANCON RN CM
[2021-11-20] MEDS: Folic Acid 1 MG Tablet 2 MG PO (12:31)
[2021-11-20] MEDS: Hydroxychloroquine 200 MG Tablet PO (12:32)
[2021-11-20 14:36] VITALS: BP 142/61; PULSE 82; RESP 18; TEMP 36.9; O2SAT 97
== END 2021-11-20 15:00 | disposition home or self-care (01) ==
LOC: MS3 08:39 → SDC 12:07 → MS3 12:07
PROVIDERS: Admitting Provider Specialist; PCP Family Medicine; Referring Provider Specialist; Visit Provider Specialist
PROC: (CPT 27284; principal; 2021-11-19 08:20)
DX: M16.12 Unilateral primary osteoarthritis, left hip (principal); M06.4 Inflammatory polyarthropathy; M87.052 Idiopathic aseptic necrosis of left femur; E66.01 Morbid (severe) obesity due to excess calories; Z68.41 Body mass index [BMI] 40.0-44.9, adult; E78.00 Pure hypercholesterolemia, unspecified; M79.7 Fibromyalgia; E07.9 Disorder of thyroid, unspecified; F32.A Depression, unspecified; K21.9 Gastro-esophageal reflux disease without esophagitis; Z98.84 Bariatric surgery status; Z79.899 Other long term (current) drug therapy; Z79.890 Hormone replacement therapy
CPT/HCPCS: 27130; 01214; 36415; 73501; 73502; 76000; 80048; 82962; 85027; 88305; 88311; 96365; 96366; 97110; 97162; 97166; 97530; 97535; 99218; 99251; C1776; J7120; G0378; G0463; J2405

== ENCOUNTER → 2022-07-02 | Outpatient (CLI) | payer MEDICARE, SELFPAY ==
--- NOTE | 2022-07-02 14:29 | US_ITS ---
STUDY: ULTRASOUND OF THE FEMALE PELVIS - COMPLETE REASON FOR EXAM: Female, 67 years old. AUB LMP: Patient is postmenopausal. TECHNIQUE: Transabdominal and Transvaginal TECHNICAL QUALITY: Adequate. COMPARISON: None. FINDINGS: The uterus is anteverted and is in a midline position. The uterus measures 4.8 cm x 4.2 cm x 2.9 cm. Normal uterine cervix. The endometrium is mildly thickened and measures 4 mm in thickness, and is hyperechoic. There is no demonstrated endometrial mass. There is no demonstrated myometrial mass. I.U.D. - The patient does not have an I.U.D. The right ovary is visualized. The right ovary measures 1.8 cm x 1.6 centimeters x 2 cm. There is no right ovarian cyst or ovarian mass. There is no visualized right adnexal mass or complex lesion. There is normal arterial and normal venous vascularity. The left ovary is non-visualized due to overlying bowel gas. There is no fluid in the cul-de-sac. The pre void volume of the bladder was 36 ml. US/Pelvic (Non ) IMPRESSION: Thickened endometrium for patient''s age. Electronically Signed: Yannick Morrissey MD at 15:12 EST ,
== END | disposition home or self-care (01) ==
LOC: US 14:26
PROVIDERS: PCP Family Medicine; Referring Provider Urology; Visit Provider Urology
DX: Z78.0 Asymptomatic menopausal state (principal); N93.9 Abnormal uterine and vaginal bleeding, unspecified
CPT/HCPCS: 76830; 76856

== ENCOUNTER → 2025-02-20 | Outpatient (CLI) | payer MEDICARE, SELFPAY ==
[2025-02-20 15:21] LABS: Anion Gap 11 (5-15); BUN 14 mg/dL (4-19); BUN/Creat Ratio 20.1 RATIO (10-20); Calcium,Total 9.3 mg/dL (7.6-11.0); Carbon Dioxide 24.5 mmol/L (21.0-32.0); Chloride 104 mmol/L (98-108); Glucose 89 mg/dL (70-99); Potassium 4.0 mmol/L (3.3-5.1)
== END | disposition home or self-care (01) ==
LOC: MTLAB 12:04
PROVIDERS: PCP Family Medicine; Referring Provider Urology; Visit Provider Urology
DX: R25.2 Cramp and spasm (principal)
CPT/HCPCS: 36415; 80048